=== PATIENT | male | born 1970 | race Caucasian/White ===

== ENCOUNTER → 2016-04-16 | Outpatient (CLI) | payer BC, OTHER ==
[~2016-04-16] MED LIST: DULO60CA44 PO; GABA-113 PO; HYDR-5688 PO; IRBE1TAB50 PO; PRLSR20 PO; TAMS0.4C38 PO; TRAM-10 PO; TYLER650 PO
[2016-04-16 12:24] LABS: BASO % 0.1 %; BASO ABS # 0.01 K/uL (0-0.2); COMPLETE YES; EOS % 1.7 %; HEMATOCRIT 40.6 % (42-52); IG% 0.6 %; LYMPH % 30.8 %; LYMPH ABS # 2.71 K/uL (1.2-3.4); MEAN CELL VOLUME 87.9 fL (80-100); MEAN CORPUSCULAR HEMOGLOBIN 29.7 pg (25-34); MEAN CORPUSCULAR HGB CONC 33.7 g/dl (32-36); MEAN PLATELET VOLUME 9.7 fL (7.4-10.4); MONO % 13.7 %; NEUT % 53.1 %; PLATELET COUNT 319 K/uL (130-400); RED BLOOD COUNT 4.62 M/uL (4.7-6.1); WHITE BLOOD COUNT 8.79 K/uL (4.8-10.8)
[2016-04-16 12:38] LABS: ALT/SGPT 33 U/L (12-78); BLOOD UREA NITROGEN 13 mg/dl (7-18); BUN/CREATININE RATIO 11.8 (10-20); CALCIUM 9.3 mg/dl (8.5-10.1); CARBON DIOXIDE 32 mmol/L (21-32); CHLORIDE 103 mmol/L (98-107); CHOLESTEROL 143 mg/dl (0-200); GLUCOSE 98 mg/dl (70-99); POTASSIUM 4.4 mmol/L (3.5-5.1); SODIUM 140 mmol/L (136-145); TRIGLYCERIDES 131 mg/dl (0-150); VERY LOW DENSITY LIPOPROT CALC 26 mg/dl
[2016-04-16 12:48] LABS: ALB/GLOB RATIO 0.9 (0.9-2); ALKALINE PHOSPHATASE 82 U/L (45-117); AST/SGOT 22 U/L (15-37); CHOLESTEROL/HDL RATIO 4.1; HDL CHOLESTEROL 35 mg/dl; LDL CHOLESTEROL CALCULATED 82 mg/dl; PROSTATE SPECIFIC ANTIGEN 0.268 ng/ml (0.000-4.000)
[2016-04-16 13:10] LABS: ESTIMATED AVERAGE GLUCOSE 123 mg/dl; HA1C FLAG Normal (Normal)
== END | disposition home or self-care (01) ==
LOC: C.LABBFT 07:56
PROVIDERS: ATTEND Internal Medicine
DX: R39.198 Other difficulties with micturition (principal); I10 Essential (primary) hypertension; R73.9 Hyperglycemia, unspecified; Z13.6 Encounter for screening for cardiovascular disorders

== ENCOUNTER → 2016-09-06 | Outpatient (CLI) | payer BC, OTHER ==
--- NOTE | 2016-09-06 14:16 | DIAGNOSTIC IMAGING REPORT ---
MRI OF THE RIGHT KNEE WITHOUT CONTRAST CLINICAL HISTORY: Chronic right knee pain. Evaluate for lateral meniscal tear. COMPARISON STUDY: None. TECHNIQUE: Utilizing a 0.7 Khushboo open magnet and dedicated coil, multiplanar, multiecho imaging of the right knee was performed without intravenous or intraarticular contrast. FINDINGS: Alignment of the right knee is anatomic. The cruciate and collateral ligaments are intact. There is no marrow edema or marrow replacement. Evaluation is compromised due to diminished [id number]. There is a amorphous intrasubstance signal within the body, posterior horn and anterior horn of the lateral meniscus. There is equivocal extension to articular surface. The lateral meniscus is slightly extruded. The free edge of the body of the medial meniscus is truncated. There is intrasubstance signal within the posterior horn of the medial meniscus. There is mild tricompartmental chondrosis. There is no joint effusion. Extensor mechanism is intact. IMPRESSION: 1. Intact cruciate and collateral ligaments. 2. Intrasubstance signal within the lateral meniscus. Evaluation for articular surface extension is compromised due to diminished [id number] on this exam. Findings are equivocal for a lateral meniscal tear. 3. 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 Electronically signed by: Pritesh Hyatt M.D. 09/06/2016 2:14 PM Dictated Date/Time: 09/06/2016 1:47 PM
== END | disposition home or self-care (01) ==
LOC: C.OPENMRI 12:02
PROVIDERS: ATTEND Orthopaedic Surgery
DX: M25.561 Pain in right knee (principal); G89.29 Other chronic pain

== ENCOUNTER 2016-09-21 05:31 | Day surgery (SDC) | payer BC, OTHER ==
[2016-09-17 09:34] VITALS: BMI 54.0
--- NOTE | 2016-09-17 10:06 | PAT Medication Instructions ---
Service Date Sep 17, 2016. Current Home Medication List Acetaminophen (Tylenol Arthitis Ext Rel), 1,950 MG PO prn Duloxetine Hcl (Cymbalta), 60 MG PO QAM Gabapentin (Neurontin), 600 MG PO TID PRN for RN Irbesartan (Irbesartan), 1 TAB PO QAM Omeprazole (Prilosec), 20 MG PO BID Tamsulosin Hcl (Flomax), 0.4 MG PO QAM Tramadol (Ultram), 50-100 MG PO Q4-6H Medication Instructions For Your Scheduled Surgery - Hold the following medications the morning of surgery: Tamsulosin Hcl (Flomax), 0.4 MG PO QAM Irbesartan (Irbesartan), 1 TAB PO QAM - Take the following medications the morning of surgery with a sip of water: Omeprazole (Prilosec), 20 MG PO BID Duloxetine Hcl (Cymbalta), 60 MG PO QAM Gabapentin (Neurontin), 600 MG PO TID PRN for RN (if needed) Acetaminophen (Tylenol Arthitis Ext Rel), 1,950 MG PO prn (if needed) Tramadol (Ultram), 50-100 MG PO Q4-6H (okay to take up to 4 hours prior to surgery if needed) - Take the following medications as scheduled the night before surgery: Omeprazole (Prilosec), 20 MG PO BID Gabapentin (Neurontin), 600 MG PO TID PRN for RN (if needed) Acetaminophen (Tylenol Arthitis Ext Rel), 1,950 MG PO prn (if needed) Tramadol (Ultram), 50-100 MG PO Q4-6H (if needed) If you have any questions please call us at [phone] or [phone] or [phone]
[2016-09-17 10:38] LABS: BASO % 0.1 %; BASO ABS # 0.01 K/uL (0-0.2); COMPLETE YES; EOS % 2.5 %; HEMATOCRIT 37.1 % (42-52); IG% 0.4 %; LYMPH % 43.7 %; LYMPH ABS # 3.44 K/uL (1.2-3.4); MEAN CORPUSCULAR HEMOGLOBIN 30.3 pg (25-34); MEAN CORPUSCULAR HGB CONC 33.7 g/dl (32-36); MEAN PLATELET VOLUME 9.4 fL (7.4-10.4); MONO % 7.4 %; NEUT % 45.9 %; PLATELET COUNT 316 K/uL (130-400); RED BLOOD COUNT 4.12 M/uL (4.7-6.1); WHITE BLOOD COUNT 7.87 K/uL (4.8-10.8)
[2016-09-17 10:46] LABS: BUN/CREATININE RATIO 11.9 (10-20); CALCIUM 8.9 mg/dl (8.5-10.1); POTASSIUM 4.2 mmol/L (3.5-5.1)
--- NOTE | 2016-09-20 17:42 | HISTORY & PHYSICAL EXAMINATION ---
DATE OF ADMISSION: 09/21/2016 HISTORY OF PRESENT ILLNESS: The patient is 6 feet 1 inch, and BMI 53.56, white male with complaints of ongoing pain attributed to his right knee. He presents with complaints of ongoing pain attributable to his right knee, torn medial meniscus as well as severe obesity. He has failed attempts at conservative management with previous corticosteroid injections, anti-inflammatories, relative rest, activity modification and bracing. PAST MEDICAL HISTORY: Significant for hypertension, sleep apnea for which he uses a home CPAP, intermittent numbness of his lower extremities, DJD of the spine acid reflux and severe obesity. He also has a history of malignant hyperthermia per history. PAST SURGICAL HISTORY: Significant for back surgery, left knee surgery, right wrist surgery, cholecystectomy, and tonsillectomy. ALLERGIES: PENICILLIN AND ERYTHROMYCIN. MEDICATIONS: Omeprazole, Flomax, Cymbalta, and gabapentin. SOCIAL HISTORY: Otherwise unremarkable. FAMILY HISTORY: The patient denies any pertinent family history. PHYSICAL EXAMINATION: GENERAL: Reveals a very pleasant 6 feet 1 inch, BMI 53.56, 46-year-old white male with the above complaints noted. He has been nonresponsive to conservative therapy and presents today for surgical intervention. HEENT: Unremarkable, atraumatic and normocephalic. HEART: Regular at 68 beats per minute. No murmurs are noted. LUNGS: Clear without rales, rhonchi or wheeze noted. ABDOMEN: Soft, nontender, and nondistended. Bowel sounds are present in all 4 quadrants. RECTAL: No rectal examination was performed. MUSCULOSKELETAL: Consistent with that of right knee pain with torn medial meniscus and parameniscal cyst. PLAN: For arthroscopy, arthroscopic excision of parameniscal cyst, partial meniscectomy pending findings at time of surgery, postoperative pain management, DVT prophylaxis, and antibiotics as necessary. MTDD
[~2016-09-21] VITALS: Ht 185.4 cm; Wt 186.2 kg
[~2016-09-21 05:31] MED LIST changes: -HYDR-5688 PO
[2016-09-21 05:44] VITALS: BP 139/86; PULSE 78; TEMP 36.5; O2SAT 95; Ht 185.4 cm; Wt 186.2 kg
[2016-09-21] MEDS ORDERED: LACTATED RINGER'S 1000ML 1,000 ML IV SCH (06:00)
[2016-09-21] MEDS ORDERED: FENTANYL CITRATE INJ 50 MCG/1 ML 2 ML VIAL ONE ×2 (06:39→07:11)
[2016-09-21] MEDS ORDERED: PROPOFOL IV EMULSION 10 MG/ML 20 ML VIAL IV ONE ×2 (06:39→10:20)
[2016-09-21] MEDS ORDERED: NEOSTIGMINE METHYLSULFATE 5 MG/5 ML SYR ONE (06:39)
[2016-09-21] MEDS ORDERED: LIDOCAINE HCL 2% 2 ML VIAL (20MG/ML) ONE (06:39)
[2016-09-21] MEDS ORDERED: MIDAZOLAM HCL 1 MG/ML 2ML VIAL ONE (06:39)
[2016-09-21] MEDS ORDERED: DEXAMETHASONE SOD INJ 4 MG/ML VIAL ONE (06:39)
[2016-09-21] MEDS ORDERED: GLYCOPYRROLATE INJ 0.2 MG/ML VIAL ONE (06:39)
[2016-09-21] MEDS ORDERED: ONDANSETRON INJ 2 MG/ML 2 ML VIAL ONE (06:39)
[2016-09-21] MEDS ORDERED: ROCURONIUM BROMIDE 10 MG/ML 5 ML VIAL ONE (06:39)
[2016-09-21] MEDS ORDERED: NURSING VERBAL MED ORDER ONE (06:45)
[2016-09-21] MEDS ORDERED: BUPIVACAINE/EPINEPHRINE 0.5% MPF 1:200,000 10 ML VIAL ONE (06:52)
--- NOTE | 2016-09-21 06:54 | History & Physical Bridge Note ---
H&P Re-Evaluation Bridge Note: I have examined the patient, reviewed the History & Physical and in the interval since the performance of the History & Physical I have noted the following changes of clinical significance: No changes noted
[2016-09-21] MEDS ORDERED: CLINDAMYCIN IV 900 MG in DEXTROSE 5% ADD-VANTAGE 100ML 100 ML IV SCH (07:00)
[2016-09-21] MEDS ORDERED: BUPIVACAINE/EPINEPHRINE 0.25% 10 ML VIAL ONE (07:13)
[2016-09-21] MEDS ORDERED: ESMOLOL HCL 10 MG/ML 10 ML VIAL ONE (07:17)
--- NOTE | 2016-09-21 07:22 | Discharge Instructions ---
Discharge Instructions Date of Service Sep 21, 2016. Visit Reason for Visit: Right Knee Medial Meniscus Tear, Parameniscal Cyst Discharge Discharge Diagnosis / Problem: right knee arthroscopy partial medial meniscectomy Discharge Goals Goal(s): Decrease discomfort, Improve function, Increase independence Activity Recommendations Activity Limitations: as noted below Weightbearing Status: Right weightbearing (as tolerated) Anesthesia . Post Anesthesia Instructions: If you have had General Anesthesia or IV Sedation: * Do not drive today. * Resume driving when surgeon permits. * Do not make important decisions or sign legal documents today. * Call surgeon for: 1. Temperature elevations greater than 101 degrees F. 2. Uncontrollable pain. 3. Excessive bleeding. 4. Persistent nausea and vomiting. 5. Medication intolerance (nausea, vomiting or rash). * For nausea and vomiting use only clear liquids such as: tea, soda, bouillon until nausea subsides, then gradually increase diet as tolerated. * If you have any concerns or questions, call your surgeon's office. If physician is unavailable and it is an emergency, call 911 or go to the nearest emergency room. . Instructions / Follow-Up Instructions / Follow-Up ACTIVITY RECOMMENDATIONS: * You may walk on the leg with or without crutches as comfort permits. * Bending of the knee should start at once. * Do not shower for 48 hours following surgery. SPECIAL CARE INSTRUCTIONS: * You may cleanse the skin adjacent to the small wounds with soap and water at the time of the first dressing change. * The application of an ice bag to the front and sides of the knee will decrease swelling and discomfort for the first 48 hours. * The small incisions may be sore and develop bruising. This bruising does not require any special care. SPECIAL PRECAUTIONS: * If you experience unusual pain unrelieved by prescriptions, temperature elevation (100 degrees F. or above) or progressive swelling or bleeding, you should contact our office at for further evaluation. * You may have been prescribed pain medication. If you experience nausea and/or fine skin rash, discontinue this medication and contact our office at for an alternate medication. DRESSING: * Dressing should be comfortable and absorb any leakage of fluid and/or blood. * The dressing may become moist or bloodstained. * Dressing may be removed _24 hours_ after surgery and bandaids placed over the small surgical incisions. If can be removed sooner if it becomes very soiled or loose. * Bandaids may be used over next several days as needed and can be discontinued when there is not further drainage from the wounds. FOLLOW UP VISIT: If appointment is not already scheduled: Please call [facility] to make a follow-up appointment for your surgery at . Diet Recommendations Recommended Home Diet: resume previous diet Pending Studies Studies pending at discharge: no Medical Emergencies . Who to Call and When: Medical Emergencies: If at any time you feel your situation is an emergency, please call 911 immediately. . Non-Emergent Contact Non-Emergency issues call your: Primary Care Provider . . "Provider Documentation" section prepared by Arnulfo Cano. . [place] Drug Monitoring Program Search Results: patient reviewed within database, no issues identified
[2016-09-21] MEDS ORDERED: HYDR-5688 PO (07:23)
[2016-09-21] MEDS ORDERED: ONDANSETRON INJ 2 MG/ML 2 ML VIAL IV PRN ×2 (07:30)
[2016-09-21] MEDS ORDERED: HYDROCODONE/ACETAMOPHEN 5/325MG TAB PO PRN ×2 (07:30)
[2016-09-21] MEDS ORDERED: ATROPINE SULFATE 0.1 MG/ML 5ML SYR IV PRN (07:30)
[2016-09-21] MEDS ORDERED: EpHEDrine SULFATE INJ 50 MG/ML AMP IV PRN (07:30)
[2016-09-21] MEDS ORDERED: FENTANYL CITRATE INJ 50 MCG/1 ML 2 ML VIAL IV PRN (07:30)
--- NOTE | 2016-09-21 07:37 | [facility] Operative Report ---
Operative Report Operative Date Sep 21, 2016. Pre-Operative Diagnosis Right torn medial meniscus and parameniscal cyst. Post-Operative Diagnosis Right torn lateral meniscus and parameniscal cyst. Procedure(s) Performed Right knee arthroscopic partial lateral meniscectomy and aspiration of lateral parameniscal cyst Surgeon Dr. Hankins Freight Separator Surgeon(s) none Estimated Blood Loss 2 cc Findings Complex tear posterior horn lateral meniscus with lateral Meniscal cyst Specimens none Complication(s) None Disposition Recovery Room / PACU Indications Patient unresponsive to conservative therapy including bracing and anti- inflammatories and injections were all progressed activity modification presents with a TEAR of the posterior horn of his lateral meniscus with a lateral para-meniscal cysts for arthroscopic intervention Description of Procedure After proper prepping draping the right lower extremity arthroscopic examination revealed the medial meniscus to be intact there's markedly thickened hypertrophic anterior synovium which was also debrided to a stable margin articular cartilage and patellofemoral joint medial compartment lateral compartment was otherwise in excellent condition. Osteophytes posterior horn lateral meniscus of the partial posterior horn lateral meniscectomy for as well as aspiration, para-meniscal cyst procedure well interfascicular shoulders are probed and intact and no other intra-articular pathology was noted bodies are noted subsequently the supraumbilical 4-0 nylon injection (were percent Marcaine with epinephrine was injected in the knee joint patient IS rotator cuff stable condition operative report dictated by Cr. I attest to the content of the Intraoperative Record and any orders documented therein. Any exceptions are noted below.
[2016-09-21] MEDS ORDERED: SODIUM CHLORIDE 0.9% 1000ML 1,000 ML IV SCH (08:00)
[2016-09-21 08:35] VITALS: BP 111/59; PULSE 71; TEMP 36.6; O2SAT 93
--- NOTE | 2016-09-21 08:35 | Anesthesiology Progress Note ---
Anesthesia Post Op Note Date & Time Sep 21, 2016 at 08:35 Vital Signs Pain Intensity: 2 Vital Signs Past 12 Hours Date Time Temp Pulse Resp B/P (MAP) Pulse Ox O2 Delivery O2 Flow Rate FiO2 09/21/16 08:25 79 18 108/59 94 Room Air 09/21/16 08:15 36.2 78 14 110/64 94 Room Air 09/21/16 08:05 85 16 105/77 94 Room Air 09/21/16 07:55 85 16 94/66 98 Oxymask 10 09/21/16 07:46 36.7 97 16 113/69 95 Oxymask 10 09/21/16 05:44 36.5 78 20 139/86 (103) 95 Room Air Notes Mental Status: alert / awake / arousable, participated in evaluation Pt Amnestic to Procedure: Yes Nausea / Vomiting: adequately controlled Pain: adequately controlled Airway Patency, RR, SpO2: stable & adequate BP & HR: stable & adequate Hydration State: stable & adequate Anesthetic Complications: no major complications apparent
[2016-09-21 09:05] VITALS: BP 127/79; PULSE 75; O2SAT 94
[2016-09-21 09:35] VITALS: BP 146/79; PULSE 80; TEMP 36.4; O2SAT 94
== END 2016-09-21 09:42 | disposition home or self-care (01) ==
LOC: C.ACU 05:31
PROVIDERS: ATTEND Orthopaedic Surgery
DX: S83.271A Complex tear of lateral meniscus, current injury, right knee, initial encounter (principal); M23.051 Cystic meniscus, posterior horn of lateral meniscus, right knee; E66.01 Morbid (severe) obesity due to excess calories; Z68.43 Body mass index [BMI] 50.0-59.9, adult; I10 Essential (primary) hypertension; G47.30 Sleep apnea, unspecified; K21.9 Gastro-esophageal reflux disease without esophagitis; Z79.899 Other long term (current) drug therapy; X58.XXXA Exposure to other specified factors, initial encounter

== ENCOUNTER → 2016-10-27 | Outpatient (CLI) | payer BC, OTHER ==
[~2016-10-27] MED LIST changes: +HYDR-5688 PO; -TYLER650 PO
[2016-10-27 18:02] LABS: BASO % 0.1 %; BASO ABS # 0.01 K/uL (0-0.2); COMPLETE YES; EOS % 1.5 %; HEMATOCRIT 40.4 % (42-52); IG% 0.4 %; LYMPH % 36.8 %; LYMPH ABS # 2.98 K/uL (1.2-3.4); MEAN CELL VOLUME 91.6 fL (80-100); MEAN CORPUSCULAR HEMOGLOBIN 29.7 pg (25-34); MEAN CORPUSCULAR HGB CONC 32.4 g/dl (32-36); MEAN PLATELET VOLUME 10.1 fL (7.4-10.4); MONO % 9.4 %; NEUT % 51.8 %; PLATELET COUNT 299 K/uL (130-400); RED BLOOD COUNT 4.41 M/uL (4.7-6.1); WHITE BLOOD COUNT 8.09 K/uL (4.8-10.8)
[2016-10-28 06:01] LABS: ESTIMATED AVERAGE GLUCOSE 126 mg/dl; HA1C FLAG Normal (Normal)
== END | disposition home or self-care (01) ==
LOC: C.LABBFT 14:06
PROVIDERS: ATTEND Internal Medicine
DX: D64.9 Anemia, unspecified (principal); R73.9 Hyperglycemia, unspecified

== ENCOUNTER → 2016-11-29 | Day surgery (SDC) | payer BC, OTHER ==
[2016-11-19 11:48] VITALS: Ht 185.4 cm; Wt 185.9 kg
[~2016-11-29] VITALS: Ht 185.4 cm; Wt 185.9 kg
[~2016-11-29] MED LIST changes: +ATROPINE SULFATE 0.1 MG/ML 5ML SYR IV PRN; +EpHEDrine SULFATE INJ 50 MG/ML AMP IV PRN; -HYDR-5688 PO; +KETAMINE HCL INJ 50 MG/ML 10 ML VIAL ONE; +LIDOCAINE HCL 2% 2 ML VIAL (20MG/ML) ONE; +MIDAZOLAM HCL 1 MG/ML 2ML VIAL ONE; +PROPOFOL IV EMULSION 10 MG/ML 20 ML VIAL IV ONE; +SODIUM CHLORIDE 0.9% 500ML 500 ML IV ONE; -TRAM-10 PO
--- NOTE | 2016-11-29 13:44 | Endo History and Physical ---
History & Physical Date of Service: Nov 29, 2016. Chief Complaint: BLOOD IN STOOL Referring Physician: DR. OLSEN History of Present Illness anemia; blood in stool; - wt loss; - FH of CRC Past Surgical History Hx Cardiac Surgery: No Hx Internal Defibrillator: No Hx Pacemaker: No Hx Abdominal Surgery: Yes (RICKIE) Hx of Implantable Prosthesis: No Hx Post-Op Nausea and Vomiting: No Hx Cancer Surgery: No Hx Thoracic Surgery: No Hx Orthopedic: Yes (RT WRIST CYST REMOVAL, LUMBAR FUSION, L/RT KNEE ARTHROSCOPY ) Hx Urinary Tract Surgery: No Family History IBD Social History Smoking Status: Never Smoker Hx Substance Use: No Hx Alcohol Use: Yes (OCCASIONALLY ) Allergies Coded Allergies: BEE STING (Verified Allergy, Severe, anaphylaxis, 11/19/16) Erythromycin (Verified Allergy, Mild, HIVES, 11/19/16) Penicillins (Verified Allergy, Mild, HIVES, NAUSEA, 11/19/16) Anesthetics, Amide (Verified Adverse Reaction, Severe, "GENERAL ANESTHESIA " -- MALIGNANT HYPERTHERMIA IN PAST, 11/19/16) Anesthetics, Addis (Verified Adverse Reaction, Severe, "GENERAL ANESTHESIA " -- MALIGNANT HYPERTHERMIA IN PAST, 11/19/16) Anesthetics, Halogenated (Verified Adverse Reaction, Severe, "GENERAL ANESTHESIA" -- MALIGNANT HYPERTHERMIA IN PAST, 11/19/16) Doxycycline (Verified Adverse Reaction, Intermediate, NAUSEA AND ABDOMINAL PAIN, 11/29/16) Current Medications Reported Home Medications Medications Dose Route/Sig Max Daily Dose Days Date Category Irbesartan 300 Mg Tab 1 Tab PO QAM 90 11/24/15 Reported Cymbalta (Duloxetine Hcl) 60 Mg Cap 60 Mg PO QAM 11/24/15 Reported Neurontin (Gabapentin) 300 Mg Cap 600 Mg PO TID PRN 11/24/15 Reported Flomax (Tamsulosin Hcl) 0.4 Mg Cap 0.4 Mg PO QAM 11/24/15 Reported Prilosec (Omeprazole) 20 Mg Capcr 20 Mg PO BID 10/12/09 Reported Vital Signs Weight (Kilograms): 185.91 Height (Feet): 6 Height (Inches): 1 Physical Exam General Appearance: WD/WN, no apparent distress Respiratory/Chest: Auscultation: breath sounds normal Cardiovascular: Heart Auscultation: RRR Abdomen: Bowel Sounds: normal Inspection & Palpation: soft, non-distended, no tenderness, guarding & rebound Assessment and Plan colonoscopy
--- NOTE | 2016-11-29 14:38 | GI REPORT ---
Procedure Date: 11/29/2016 1:56 PM Procedure: Colonoscopy Indications: Hematochezia, Unexplained iron deficiency anemia Medicines: Propofol per Anesthesia Complications: No immediate complications. Estimated blood loss: Minimal. Estimated Blood Loss: Estimated blood loss was minimal. Procedure: Pre-Anesthesia Assessment: - Prior to the procedure, a History and Physical was performed, and patient medications and allergies were reviewed. The patient's tolerance of previous anesthesia was also reviewed. The risks and benefits of the procedure and the sedation options and risks were discussed with the patient. All questions were answered, and informed consent was obtained. Prior Anticoagulants: The patient has taken no previous anticoagulant or antiplatelet agents. ASA Grade Assessment: III - A patient with severe systemic disease. After reviewing the risks and benefits, the patient was deemed in satisfactory condition to undergo the procedure. After I obtained informed consent, the scope was passed under direct vision. Throughout the procedure, the patient's blood pressure, pulse, and oxygen saturations were monitored continuously. The scope was introduced through the anus and advanced to the terminal ileum, with identification of the appendiceal orifice and IC valve. The colonoscopy was performed without difficulty. The patient tolerated the procedure well. The quality of the bowel preparation was good. Findings: The perianal and digital rectal examinations were normal. Pertinent negatives include normal sphincter tone, no palpable rectal lesions and no anal lesion or abnormality was detected. A 3 mm polyp was found in the rectum. The polyp was sessile. The polyp was removed with a cold biopsy forceps. Resection and retrieval were complete. Estimated blood loss was minimal. Verification of patient identification for the specimen was done by the physician and automotive service technician using the patient's name and medical record number. The exam was otherwise without abnormality. The terminal ileum appeared normal. The retroflexed view of the distal rectum and anal verge was normal and showed no anal or rectal abnormalities. Impression: - One 3 mm polyp in the rectum, removed with a cold biopsy forceps. Resected and retrieved. - The examination was otherwise normal. - The examined portion of the ileum was normal. - The distal rectum and anal verge are normal on retroflexion view. Recommendation: - Discharge patient to home (ambulatory). - Resume regular diet. - Continue present medications. - Await pathology results. - Return to referring physician as previously scheduled. MD Timbo Zhang MD 11/29/2016 2:37:33 PM This report has been signed electronically. Note Initiated On: 11/29/2016 1:56 PM I attest to the content of the Intraoperative Record and orders documented therein, exceptions below
--- NOTE | 2016-11-29 14:42 | Anesthesiology Progress Note ---
Anesthesia Post Op Note Date & Time Nov 29, 2016 at 14:42 Vital Signs Pain Intensity: 0 Vital Signs Past 12 Hours Date Time Temp Pulse Resp B/P (MAP) Pulse Ox O2 Delivery O2 Flow Rate FiO2 11/29/16 14:37 76 16 141/87 (105) 99 Room Air 11/29/16 14:22 77 16 108/71 (83) 97 Room Air 11/29/16 13:30 36.8 80 16 124/100 (108) 98 Room Air Notes Mental Status: alert / awake / arousable, participated in evaluation Pt Amnestic to Procedure: Yes Nausea / Vomiting: adequately controlled Pain: adequately controlled Airway Patency, RR, SpO2: stable & adequate BP & HR: stable & adequate Hydration State: stable & adequate Anesthetic Complications: no major complications apparent
[2016-11-29 14:52] VITALS: BP 131/95; PULSE 74; O2SAT 100
--- NOTE | 2016-11-29 14:55 | Discharge Instructions ---
Endoscopy Patient Instructions Date / Procedure(s) Performed Nov 29, 2016. Colonoscopy Allergy Information Coded Allergies: BEE STING (Verified Allergy, Severe, anaphylaxis, 11/19/16) Erythromycin (Verified Allergy, Mild, HIVES, 11/19/16) Penicillins (Verified Allergy, Mild, HIVES, NAUSEA, 11/19/16) Anesthetics, Amide (Verified Adverse Reaction, Severe, "GENERAL ANESTHESIA " -- MALIGNANT HYPERTHERMIA IN PAST, 11/19/16) Anesthetics, Addis (Verified Adverse Reaction, Severe, "GENERAL ANESTHESIA " -- MALIGNANT HYPERTHERMIA IN PAST, 11/19/16) Anesthetics, Halogenated (Verified Adverse Reaction, Severe, "GENERAL ANESTHESIA" -- MALIGNANT HYPERTHERMIA IN PAST, 11/19/16) Doxycycline (Verified Adverse Reaction, Intermediate, NAUSEA AND ABDOMINAL PAIN, 11/29/16) Discharge Date / Findings Nov 29, 2016. polyp Medication Instructions Restart Stopped Medication(s): Reported Home Medications Medications Dose Route/Sig Max Daily Dose Days Date Category Irbesartan 300 Mg Tab 1 Tab PO QAM 90 11/24/15 Reported Cymbalta (Duloxetine Hcl) 60 Mg Cap 60 Mg PO QAM 11/24/15 Reported Neurontin (Gabapentin) 300 Mg Cap 600 Mg PO TID PRN 11/24/15 Reported Flomax (Tamsulosin Hcl) 0.4 Mg Cap 0.4 Mg PO QAM 11/24/15 Reported Prilosec (Omeprazole) 20 Mg Capcr 20 Mg PO BID 10/12/09 Reported Reported Home Medications Medications Dose Route/Sig Max Daily Dose Days Date Category Irbesartan 300 Mg Tab 1 Tab PO QAM 90 11/24/15 Reported Cymbalta (Duloxetine Hcl) 60 Mg Cap 60 Mg PO QAM 11/24/15 Reported Neurontin (Gabapentin) 300 Mg Cap 600 Mg PO TID PRN 11/24/15 Reported Flomax (Tamsulosin Hcl) 0.4 Mg Cap 0.4 Mg PO QAM 11/24/15 Reported Prilosec (Omeprazole) 20 Mg Capcr 20 Mg PO BID 10/12/09 Reported Provider Instructions Activity Restrictions - No exercising or heavy lifting for 24 hours. - Do not drink alcohol the day of the procedure. - Do not drive a car or operate machinery until the day after the procedure. - Do not make any important decisions or sign important papers in 24 hours after the procedure. Following Day: - Return to full activity which may include returning to work/school. Diet Start your diet with liquids and light foods (jello, soup, juice, toast). Then eat your usual diet if not nauseated. Treatment For Common After Affects For mild abdominal pain, bloating, or excessive gas: - Rest - Eat lightly - Lie on right side Follow-Up Information Follow-up with DR. OLSEN as scheduled Anesthesia Information What You Should Know You have had a procedure that required some medicine to reduce anxiety and discomfort. This treatment is called moderate sedation. After receiving the treatment, you may be sleepy, but you will be able to breathe on your own. The effects of the treatment may last for several hours. Follow these instructions along with Activity/Diet recommendations noted above: * Do NOT do anything where dizziness or clumsiness would be dangerous. * Rest quietly at home today, then you can be up and about tomorrow. * Have a responsible person stay with you the rest of today. * You may have had an I.V. today. If so, you may take the dressing off later today. Recommendations Call your doctor if: * Trouble breathing * Continuous vomiting for more than 24 hours * Temperature above 101 degrees * Severe abdominal pain or bloating * Pain not relieved by pain medicine ordered * There is increased drainage or redness from any incision * A large amount of rectal bleeding greater than 2-3 tablespoons. (If you had a polyp/s removed or have hemorrhoids, a small amount of blood - from the rectum is to be expected.) * You have any unanswered questions or concerns. IN THE EVENT OF A SERIOUS EMERGENCY, GO TO THE NEAREST EMERGENCY ROOM Your discharge instructions were prepared by provider Timbo Miranda. Patient Instructions Signature Page Yoan Daley Patient (or Guardian) Signature/Date: I have read and understand the instructions given to me by my caregivers. Caregiver/RN/Doctor Signature/Date: The above-named patient and/or guardian has received patient instructions on this date. + Original Patient Signature Page (only) stays with chart. Please make copy for patient.
== END | disposition home or self-care (01) ==
LOC: C.GI 13:00
PROVIDERS: ATTEND Internal Medicine Gastroenterology
DX: K92.1 Melena (principal); D50.9 Iron deficiency anemia, unspecified; K62.1 Rectal polyp; G47.33 Obstructive sleep apnea (adult) (pediatric); I10 Essential (primary) hypertension; F32.9 Major depressive disorder, single episode, unspecified; Z68.43 Body mass index [BMI] 50.0-59.9, adult; E66.9 Obesity, unspecified; Z90.49 Acquired absence of other specified parts of digestive tract; Z98.890 Other specified postprocedural states; Z90.89 Acquired absence of other organs; Z88.0 Allergy status to penicillin; Z88.1 Allergy status to other antibiotic agents

== ENCOUNTER → 2017-02-01 | Outpatient (CLI) | payer BC, OTHER ==
[~2017-02-01] VITALS: Ht 185.4 cm; Wt 180.0 kg
[~2017-02-01] MED LIST changes: -ATROPINE SULFATE 0.1 MG/ML 5ML SYR IV PRN; -EpHEDrine SULFATE INJ 50 MG/ML AMP IV PRN; -KETAMINE HCL INJ 50 MG/ML 10 ML VIAL ONE; -LIDOCAINE HCL 2% 2 ML VIAL (20MG/ML) ONE; -MIDAZOLAM HCL 1 MG/ML 2ML VIAL ONE; -PROPOFOL IV EMULSION 10 MG/ML 20 ML VIAL IV ONE; -SODIUM CHLORIDE 0.9% 500ML 500 ML IV ONE
[2017-02-01 14:47] VITALS: BP 113/71; PULSE 94; Ht 185.4 cm; Wt 180.0 kg
== END | disposition home or self-care (01) ==
LOC: C.NEUR 14:20
PROVIDERS: ATTEND Internal Medicine Pulmonary Disease
DX: G47.33 Obstructive sleep apnea (adult) (pediatric) (principal); E66.01 Morbid (severe) obesity due to excess calories

== ENCOUNTER → 2017-04-28 | Outpatient (CLI) | payer OTHER ==
[2017-04-28 17:36] LABS: BASO % 0.3 %; BASO ABS # 0.02 K/uL (0-0.2); EOS % 1.4 %; EOS ABS # 0.11 K/uL (0-0.5); HEMATOCRIT 43.1 % (42-52); HEMOGLOBIN 14.3 g/dL (14.0-18.0); IG# 0.02 K/uL (0.00-0.02); LYMPH % 35.3 %; LYMPH ABS # 2.76 K/uL (1.2-3.4); MEAN CELL VOLUME 91.3 fL (80-100); MEAN CORPUSCULAR HEMOGLOBIN 30.3 pg (25-34); MEAN CORPUSCULAR HGB CONC 33.2 g/dl (32-36); MEAN PLATELET VOLUME 9.9 fL (7.4-10.4); MONO ABS # 0.47 K/uL (0.11-0.59); NEUT % 56.7 %; NEUT ABS # 4.44 K/uL (1.4-6.5); PLATELET COUNT 334 K/uL (130-400); RED CELL DISTRIBUTION WIDTH SD 47.4 fL (36.4-46.3); WHITE BLOOD COUNT 7.82 K/uL (4.8-10.8)
[2017-04-28 17:50] LABS: ALBUMIN 3.8 gm/dl (3.4-5.0); ALT/SGPT 32 U/L (12-78); AST/SGOT 18 U/L (15-37); BLOOD UREA NITROGEN 12 mg/dl (7-18); CALCIUM 9.4 mg/dl (8.5-10.1); CARBON DIOXIDE 29 mmol/L (21-32); CREATININE 1.01 mg/dl (0.60-1.40); GLUCOSE 112 mg/dl (70-99); POTASSIUM 3.8 mmol/L (3.5-5.1); SODIUM 139 mmol/L (136-145)
[2017-04-28 17:54] LABS: ALKALINE PHOSPHATASE 91 U/L (45-117); TOTAL PROTEIN 7.8 gm/dl (6.4-8.2)
[2017-04-29 07:27] LABS: HEMOGLOBIN A1C 5.8 % (4.5-5.6)
== END | disposition home or self-care (01) ==
LOC: C.LABBFT 14:56
PROVIDERS: ATTEND Internal Medicine
DX: R73.03 Prediabetes (principal); D64.9 Anemia, unspecified; N20.0 Calculus of kidney; Z12.5 Encounter for screening for malignant neoplasm of prostate

== ENCOUNTER 2017-09-10 18:16 | Emergency (ER) | payer OTHER ==
[~2017-09-10] VITALS: Ht 185.4 cm; Wt 167.8 kg
[2017-09-10 18:21] VITALS: Ht 185.4 cm; Wt 167.8 kg
[2017-09-10] MEDS ORDERED: KETOROLAC TROMETHAMINE 30 MG/ML VIAL IV STA (18:30)
[2017-09-10] MEDS ORDERED: SODIUM CHLORIDE 0.9% 1000ML 1,000 ML IV STA ×2 (18:30→19:34)
[2017-09-10] MEDS ORDERED: METOCLOPRAMIDE HCL INJ 5 MG/ML 2 ML VIAL IV STA (18:30)
[2017-09-10] MEDS ORDERED: DiphenhydrAMINE HCL 50 MG/ML VIAL IV STA (18:30)
--- NOTE | 2017-09-10 18:47 | EMERGENCY ROOM VISIT NOTE ---
History Report prepared by Tristian: Segun Valencia Under the Supervision of: Dr. Anatoly Sanabria M.D. First contact with patient: 18:25 Chief Complaint: ILLNESS Stated Complaint: DEHYDRATION, NAUSEA, DIARRHEA, HEADACHE History of Present Illness The patient is a 47 year old male who presents to the Emergency Room with complaints of diarrhea, nausea, abdominal pain, and pain with urination beginning 4 days ago. He also notes that he has chills and feels dehydrated. He does not know what his temperature was. He describes the abdominal pain as if someone is sticking a knife into his stomach located in his epigastric area. He states that he has been having diarrhea every 4 or 5 minutes since the onset of his symptoms, but denies seeing blood or having stool that is black. He states that he has not been on any recent antibiotics and has not eaten anything that he thinks could cause these symptoms. He states that he has been drinking 3 to 4 tall glasses of Gatorade and water per day but notes that he still feels dehydrated. He notes that he was able to eat applesauce, but eating chicken noodle soup exacerbated his symptoms. He states that he has not been taking his medications recently due to his current symptoms. The patient notes a history of kidney stones but reports that his current symptoms feel different. The patient denies coughing, chest pressure, vomiting, or shortness of breath. Source of History: patient Onset: 4 days ago Position: abdomen Quality: other (diarrhea, nausea, pain with urination) Timing: intermittent (diarrhea: every 4 to 5 minutes since onset) Associated Symptoms: + fevers, + chills, + neck pain, No cough, No chest pain, No SOB Review of Systems See HPI for pertinent positives and negatives. A total of ten systems were reviewed and were otherwise negative. Past Medical & Surgical Medical Problems: (1) Bronchitis (2) Kidney stone (3) Stomach problems (4) Ulcer Family History Diabetes mellitus Gallbladder disease Heart disease Hypertension Kidney disease Kidney stones Social History Smoking Status: Never Smoker Current/Historical Medications Scheduled Duloxetine Hcl (Cymbalta), 60 MG PO QAM Gabapentin (Neurontin), 600 MG PO TID Irbesartan (Irbesartan), 300 MG PO QAM Omeprazole (Prilosec), 20 MG PO BID Tamsulosin Hcl (Flomax), 0.4 MG PO QAM Allergies Coded Allergies: BEE STING (Verified Allergy, Severe, anaphylaxis, 11/19/16) Erythromycin (Verified Allergy, Mild, HIVES, 11/19/16) Penicillins (Verified Allergy, Mild, HIVES, NAUSEA, 11/19/16) Anesthetics, Amide (Verified Adverse Reaction, Severe, "GENERAL ANESTHESIA " -- MALIGNANT HYPERTHERMIA IN PAST, 11/19/16) Anesthetics, Addis (Verified Adverse Reaction, Severe, "GENERAL ANESTHESIA " -- MALIGNANT HYPERTHERMIA IN PAST, 11/19/16) Anesthetics, Halogenated (Verified Adverse Reaction, Severe, "GENERAL ANESTHESIA" -- MALIGNANT HYPERTHERMIA IN PAST, 11/19/16) Doxycycline (Verified Adverse Reaction, Intermediate, NAUSEA AND ABDOMINAL PAIN, 11/29/16) Physical Exam Vital Signs Date Time Temp Pulse Resp B/P (MAP) Pulse Ox O2 Delivery O2 Flow Rate FiO2 09/10/17 21:05 75 16 120/73 99 09/10/17 20:26 37.0 79 18 111/63 98 Room Air 09/10/17 19:30 81 16 123/64 98 Room Air 09/10/17 18:21 36.7 95 18 161/97 95 Room Air Physical Exam Physical Exam GENERAL: He is oriented to person, place, and time. He appears well-developed and well-nourished. He does not appear distressed. HENT: Exam performed. Head: Normocephalic and atraumatic. Right Ear: External ear normal. No mastoid tenderness. Left Ear: External ear normal. No mastoid tenderness. Mouth/Throat: The oropharynx is clear and moist. No trismus in the jaw. No dental abscesses or uvula swelling. No oropharyngeal exudate or tonsillar abscesses. EYES: Conjunctivae and EOM are normal. Pupils are equal, round, and reactive to light. Right eye exhibits no discharge. Left eye exhibits no discharge. No scleral icterus. NECK: Normal range of motion. Neck supple. No JVD present. No spinous process tenderness present. No carotid bruit present. No rigidity. No tracheal deviation and normal range of motion present. No Brudzinski's sign and no Kernig 's sign noted. CV: Normal rate, regular rhythm, normal heart sounds and intact distal pulses. There is no peripheral edema. Palpable radial pulses bue. PULM/CHEST: Effort normal and breath sounds normal. No respiratory distress. No stridor. He has no wheezes. He has no rales. Chest Wall: He exhibits no tenderness. ABD: Obese. The abdomen is soft. Bowel sounds are normal. He has no distension. No mass is present. There is no tenderness. There is no rebound, no guarding, no Villa's sign and no tenderness at McBurney's point. Rovsig negative. MUSC/SKEL: Normal range of motion. There is no peripheral edema, tenderness or deformity. LYMPH: No cervical adenopathy. NEURO: He is alert and oriented to person, place, and time. He has normal strength. No cranial nerve deficit or sensory deficit. Coordination and gait normal. GCS eye subscore is 4. GCS verbal subscore is 5. GCS motor subscore is 6. Cerebellar tests wnl. SKIN: Skin is warm and dry. He is not diaphoretic. PSYCH: He has a normal mood and affect. Behavior is normal. Judgment and thought content normal. Medical Decision & Procedures ER Provider Diagnostic Interpretation: Radiology results as stated below per my review and radiologist interpretation: CHEST 2 VIEWS ROUTINE CLINICAL HISTORY: Nausea, vomiting, diarrhea. Dehydration. COMPARISON STUDY: 10/12/2009 FINDINGS: The cardiac and mediastinal contours are normal. There is no evidence of focal pulmonary consolidation. There is no evidence of failure. No pleural effusions are visualized.[ IMPRESSION: No active disease in the chest. Electronically signed by: Davis Mendez M.D. 09/10/2017 7:27 PM Dictated Date/Time: 09/10/2017 7:27 PM Laboratory Results 09/10/17 18:45 Red Blood Count 4.67, Mean Corpuscular Volume 90.6, Mean Corpuscular Hemoglobin 30.6, Mean Corpuscular Hemoglobin Concent 33.8, Mean Platelet Volume 9.1, Neutrophils (%) (Auto) 69.5, Lymphocytes (%) (Auto) 22.2, Monocytes (%) (Auto) 7.9, Eosinophils (%) (Auto) 0.1, Basophils (%) (Auto) 0.1, Neutrophils # (Auto) 6.24, Lymphocytes # (Auto) 2.00, Monocytes # (Auto) 0.71, Eosinophils # (Auto) 0.01, Basophils # (Auto) 0.01 7/28/18 18:45 Test 09/10/17 18:45 09/10/17 19:30 09/10/17 20:38 09/10/17 20:42 White Blood Count 8.99 K/uL (4.8-10.8) Red Blood Count 4.67 M/uL (4.7-6.1) Hemoglobin 14.3 g/dL (14.0-18.0) Hematocrit 42.3 % (42-52) Mean Corpuscular Volume 90.6 fL (80-100) Mean Corpuscular Hemoglobin 30.6 pg (25-34) Mean Corpuscular Hemoglobin Concent 33.8 g/dl (32-36) Platelet Count 256 K/uL (130-400) Mean Platelet Volume 9.1 fL (7.4-10.4) Neutrophils (%) (Auto) 69.5 % Lymphocytes (%) (Auto) 22.2 % Monocytes (%) (Auto) 7.9 % Eosinophils (%) (Auto) 0.1 % Basophils (%) (Auto) 0.1 % Neutrophils # (Auto) 6.24 K/uL (1.4-6.5) Lymphocytes # (Auto) 2.00 K/uL (1.2-3.4) Monocytes # (Auto) 0.71 K/uL (0.11-0.59) Eosinophils # (Auto) 0.01 K/uL (0-0.5) Basophils # (Auto) 0.01 K/uL (0-0.2) RDW Standard Deviation 45.7 fL (36.4-46.3) RDW Coefficient of Variation 13.9 % (11.5-14.5) Immature Granulocyte % (Auto) 0.2 % Immature Granulocyte # (Auto) 0.02 K/uL (0.00-0.02) Est Creatinine Clear Calc Drug Dose 140.2 ml/min Estimated GFR () 96.4 Estimated GFR (Non- 83.2 BUN/Creatinine Ratio 6.8 (10-20) Lactic Acid Level 2.7 mmol/L (0.4-2.0) Calcium Level 9.5 mg/dl (8.5-10.1) Total Bilirubin 0.5 mg/dl (0.2-1) Direct Bilirubin 0.2 mg/dl (0-0.2) Aspartate Amino Transf (AST/SGOT) 25 U/L (15-37) Alanine Aminotransferase (ALT/SGPT) 35 U/L (12-78) Alkaline Phosphatase 77 U/L (45-117) Total Creatine Kinase 239 U/L (39-308) Total Protein 7.6 gm/dl (6.4-8.2) Albumin 3.7 gm/dl (3.4-5.0) Lipase 75 U/L (73-393) Urine Color DK YELLOW Urine Appearance CLEAR (CLEAR) Urine pH 6.0 (4.5-7.5) Urine Specific [place] 1.020 (1.000-1.030) Urine Protein TRACE (NEG) Urine Glucose (UA) NEG (NEG) Urine Ketones TRACE (NEG) Urine Occult Blood 1+ (NEG) Urine Nitrite NEG (NEG) Urine Bilirubin NEG (NEG) Urine Urobilinogen NEG (NEG) Urine Leukocyte Esterase NEG (NEG) Urine WBC (Auto) 1-5 /hpf (0-5) Urine RBC (Auto) 0-4 /hpf (0-4) Urine Hyaline Casts (Auto) 1-5 /lpf (0-5) Urine Epithelial Cells (Auto) 10-20 /lpf (0-5) Urine Bacteria (Auto) NEG (NEG) Bedside Lactic Acid Venous 0.81 mmol/L (0.90-1.70) Bedside Hemoglobin 11.9 g/dl (14.0-18.0) Bedside Hematocrit 35 % (42-52) Bedside Sodium 139 mEq/L (135-144) Bedside Potassium 3.7 mEq/L (3.3-5.0) Bedside Chloride 99 mEq/L (101-112) Bedside Total CO2 29 mEq/l (24-31) Anion Gap 16.0 mmol/L (16-25) Bedside Blood Urea Nitrogen 7 mg/dl (7-18) Bedside Creatinine 1.0 mg/dl (0.6-1.3) Bedside Glucose (other) 90 mg/dl (70-99) Bedside Ionized Calcium (Cheryl) 1.13 mmol/l (1.12-1.32) Laboratory results reviewed by me Medications Administered Medications (Trade) Dose Ordered Sig/Cresencio Route Start Time Stop Time Status Last Admin Dose Admin Sodium Chloride 1,000 ml @ 999 mls/hr Q1H1M STAT IV 09/10/17 18:30 09/10/17 19:30 DC 09/10/17 18:50 999 MLS/HR Ketorolac Tromethamine (Toradol Inj) 15 mg NOW STAT IV 09/10/17 18:30 09/10/17 18:32 DC 09/10/17 18:50 15 MG Diphenhydramine HCl (Benadryl Inj) 25 mg NOW STAT IV 09/10/17 18:30 09/10/17 18:33 DC 09/10/17 18:49 25 MG Metoclopramide HCl (Reglan Inj) 5 mg NOW STAT IV 09/10/17 18:30 09/10/17 18:33 DC 09/10/17 18:49 5 MG Sodium Chloride 1,000 ml @ 999 mls/hr Q1H1M STAT IV 09/10/17 19:34 09/10/17 20:34 DC 09/10/17 19:40 999 MLS/HR Potassium Chloride (Klor-Con M10) 20 meq NOW STAT PO 09/10/17 20:52 09/10/17 20:53 DC 09/10/17 21:02 20 MEQ ED Course 1824: The patient was evaluated in room C7. A complete history and physical exam was performed. 1829: Ordered Reglan 5 mg IV, Benadryl 25 mg IV, Toradol 15 mg IV, Sodium Chloride 1000 ml @ 999 mls/hr IV. 1931: The patient's vital signs are stable. He states that he feels better after IV fluids and that his headache is improved. There is noted pain on palpation of the right upper quadrant. He reports that he had a cholecystectomy in the past. Labs reveal a lactic acid of 2.7 and no leukocytosis, potassium 3.3. The mild elevation of the lactic acid is thought to be due to dehydration given that the patient keeps having bowel movements and diarrhea. Given no fever and no leukocytosis, infectious source is less likely on the differential. Will repeat the fluid bolus. 1933: Sodium Chloride 1000 ml @ 999 mls/hr IV 2044: Vital signs stable. The repeat abdominal exam was normal. Repeat lactate status-post 2 L fluid is 0.81. The patient will be discharged and is instructed to follow up with his PCP.Ordered Potassium Chloride 20 meq PO.DISCHARGE - Plan of care discussed with patient and questions answered. The patient was given both verbal and printed discharge instructions. The patient verbalized understanding and ability to comply. The patient is to seek outpatient follow up as noted in the discharge instructions. The patient verbalized understanding and ability to comply. The patient is discharged in stable condition. The patient was instructed to return for worsening symptoms. Medical Decision 1824: The patient was evaluated in room C7. A complete history and physical exam was performed. 1829: Ordered Reglan 5 mg IV, Benadryl 25 mg IV, Toradol 15 mg IV, Sodium Chloride 1000 ml @ 999 mls/hr IV. 1931: The patient's vital signs are stable. He states that he feels better after IV fluids and that his headache is improved. There is noted pain on palpation of the right upper quadrant. He reports that he had a cholecystectomy in the past. Labs reveal a lactic acid of 2.7 and no leukocytosis, potassium 3.3. The mild elevation of the lactic acid is thought to be due to dehydration given that the patient keeps having bowel movements and diarrhea. Given no fever and no leukocytosis, infectious source is less likely on the differential. Will repeat the fluid bolus. 1933: Sodium Chloride 1000 ml @ 999 mls/hr IV 2044: Vital signs stable. The repeat abdominal exam was normal. Repeat lactate status-post 2 L fluid is 0.81. The patient will be discharged and is instructed to follow up with his PCP.Ordered Potassium Chloride 20 meq PO.DISCHARGE - Plan of care discussed with patient and questions answered. The patient was given both verbal and printed discharge instructions. The patient verbalized understanding and ability to comply. The patient is to seek outpatient follow up as noted in the discharge instructions. The patient verbalized understanding and ability to comply. The patient is discharged in stable condition. The patient was instructed to return for worsening symptoms. Medication Reconcilliation Current Medication List: was personally reviewed by me Blood Pressure Screening Patient's blood pressure: Elevated blood pressure Blood pressure disposition: Elevated BP felt to be situational Impression Primary Impression: Diarrhea Additional Impressions: Dehydration Hypokalemia Scribe Attestation The scribe's documentation has been prepared under my direction and personally reviewed by me in its entirety. I confirm that the note above accurately reflects all work, treatment, procedures, and medical decision making performed by me. The chart was completed utilizing [employer] voice recognition software. Grammatical errors, random word insertions, pronoun errors, and incomplete sentences are an occasional consequence of this system due to software limitations, ambient noise, and hardware issues. Any formal questions or concerns about the content, text, or information contained within the body of this dictation should be directly addressed to the physician for clarification. Departure Information Dispostion Home / Self-Care Referrals Carson Taylor M.D. (PCP) Forms HOME CARE DOCUMENTATION FORM, IMPORTANT VISIT INFORMATION, WORK / SCHOOL INSTRUCTIONS Patient Instructions [facility] Additional Instructions Return to the emergency department if you develop fever greater 100.4, blood in your stool, continued diarrhea, chest pain, difficulty breathing, palpitations. Problem Qualifiers Primary Impression: Diarrhea Diarrhea type: unspecified type Qualified Codes: R19.7 - Diarrhea, unspecified
[2017-09-10 19:01] LABS: BASO % 0.1 %; BASO ABS # 0.01 K/uL (0-0.2); EOS % 0.1 %; EOS ABS # 0.01 K/uL (0-0.5); HEMATOCRIT 42.3 % (42-52); HEMOGLOBIN 14.3 g/dL (14.0-18.0); IG# 0.02 K/uL (0.00-0.02); LYMPH % 22.2 %; MEAN CELL VOLUME 90.6 fL (80-100); MEAN CORPUSCULAR HEMOGLOBIN 30.6 pg (25-34); MEAN CORPUSCULAR HGB CONC 33.8 g/dl (32-36); MEAN PLATELET VOLUME 9.1 fL (7.4-10.4); MONO % 7.9 %; MONO ABS # 0.71 K/uL (0.11-0.59); NEUT % 69.5 %; NEUT ABS # 6.24 K/uL (1.4-6.5); PLATELET COUNT 256 K/uL (130-400); RED CELL DISTRIBUTION WIDTH CV 13.9 % (11.5-14.5); RED CELL DISTRIBUTION WIDTH SD 45.7 fL (36.4-46.3); WHITE BLOOD COUNT 8.99 K/uL (4.8-10.8)
[2017-09-10] MEDS ORDERED: GABA600T PO (19:09)
[2017-09-10 19:24] LABS: ALBUMIN 3.7 gm/dl (3.4-5.0); CALCIUM 9.5 mg/dl (8.5-10.1); CREATININE 1.06 mg/dl (0.60-1.40); POTASSIUM 3.3 mmol/L (3.5-5.1); TOTAL PROTEIN 7.6 gm/dl (6.4-8.2)
--- NOTE | 2017-09-10 19:29 | DIAGNOSTIC IMAGING REPORT ---
CHEST 2 VIEWS ROUTINE CLINICAL HISTORY: Nausea, vomiting, diarrhea. Dehydration. COMPARISON STUDY: 10/12/2009 FINDINGS: The cardiac and mediastinal contours are normal. There is no evidence of focal pulmonary consolidation. There is no evidence of failure. No pleural effusions are visualized.[ IMPRESSION: No active disease in the chest. Electronically signed by: Davis Mendez M.D. 09/10/2017 7:27 PM Dictated Date/Time: 09/10/2017 7:27 PM
[2017-09-10] MEDS ORDERED: POTASSIUM CHLORIDE 10 MEQ / 100ML WTR IV STA (19:34)
[2017-09-10 20:26] VITALS: TEMP 37
[2017-09-10 20:52] LABS: ISTAT IONIZED CALCIUM 1.13 mmol/l (1.12-1.32); ISTAT POTASSIUM 3.7 mEq/L (3.3-5.0)
[2017-09-10] MEDS ORDERED: POTASSIUM CHLORIDE 10 MEQ TABCR PO STA (20:52)
[2017-09-10 21:05] VITALS: BP 120/73; PULSE 75; O2SAT 99
== END 2017-09-10 21:05 | disposition home or self-care (01) ==
LOC: C.EDB 18:17 → C.EDC 21:05
DX: R19.7 Diarrhea, unspecified (principal); E86.0 Dehydration; E87.6 Hypokalemia; R03.0 Elevated blood-pressure reading, without diagnosis of hypertension; R11.0 Nausea; R30.0 Dysuria; R68.83 Chills (without fever); Z90.49 Acquired absence of other specified parts of digestive tract; Z79.899 Other long term (current) drug therapy; Z91.030 Bee allergy status; Z88.1 Allergy status to other antibiotic agents; Z88.0 Allergy status to penicillin; Z88.8 Allergy status to other drugs, medicaments and biological substances; Z83.79 Family history of other diseases of the digestive system